=== PATIENT | male | born 1940 | race Caucasian/White ===

== ENCOUNTER 2024-04-12 06:30 | Inpatient (IN) ==
[2024-04-03 12:18] LABS: Basophils # (Auto) 0.08 K/mcL (0.00-0.30); Basophils % (Auto) 0.8 % (0.0-2.0); Eosinophils # (Auto) 0.47 K/mcL (0.00-0.70); Eosinophils % (Auto) 4.4 % (0.0-7.0); Hematocrit 38.4 % (40.1-51.0); Hemoglobin 12.1 g/dL (13.7-17.5); Lymphocytes # (Auto) 2.72 K/mcL (1.50-4.80); Lymphocytes % (Auto) 25.7 % (15.5-49.0); Mean Cell Volume 89.3 fL (80.0-100.0); Mean Corpuscular HGB Conc 31.5 g/dL (31.0-36.0); Mean Platelet Volume 10.1 fL (8.8-12.5); Monocytes # (Auto) 0.69 K/mcL (0.10-0.90); Monocytes % (Auto) 6.5 % (1.0-12.0); Neutrophils % (Auto) 62.4 % (38.0-78.0); Platelet Count 424 K/mcL (140-440); Red Cell Distribution Width 14.1 % (11.5-14.5); WBC 10.6 K/mcL (4.5-11.0)
[2024-04-03 12:23] LABS: INR 0.9 (0.9-1.1); Prothrombin Time 12.9 sec (11.9-14.5)
[2024-04-03 12:36] LABS: ALT/SGPT 31 U/L (<40); AST/SGOT 40 U/L (<40); Albumin 4.3 gm/dL (3.2-5.2); Albumin/Globulin Ratio 1.2 (1.0-2.3); Alkaline Phosphatase 107 U/L (39-117); Bilirubin,Total 0.3 mg/dL (0.1-1.0); Blood Urea Nitrogen 16 mg/dL (8-23); Calcium 9.6 mg/dL (8.6-10.4); Carbon Dioxide 22 mmol/L (22-30); Chloride 98 mmol/L (96-108); Globulin 3.7 gm/dL (2.2-3.7); Glomerular Filtration Rate 39; Glucose 118 mg/dL (70-105); Potassium 4.1 mmol/L (3.3-5.1); Sodium 135 mmol/L (133-145)
[2024-04-03 15:35] LABS: Hemoglobin A1C 7.1 % Hgb (4.0-6.0)
[2024-04-12] MEDS ORDERED: fentaNYL 100 MCG/2 ML VIAL ONE ×2 (07:53→09:39)
[2024-04-12] MEDS ORDERED: KETAMINE 50 MG/ML Syringe IV ONE (07:53)
[2024-04-12] MEDS ORDERED: PROPOFOL 200 MG/20 ML VIAL IV ONE (07:53)
[2024-04-12] MEDS ORDERED: MAGNESIUM SULFATE 2 GM/50 ML BAG IV ONE (07:56)
[2024-04-12] MEDS ORDERED: ROCURONIUM 10 MG/ML ML IV ONE (07:58)
[2024-04-12] MEDS ORDERED: DEXAMETHASONE 10 MG/ML VIAL ONE (07:58)
[2024-04-12] MEDS ORDERED: LIDOCAINE 2% PF 5 ML VIAL ONE (07:58)
[2024-04-12] MEDS ORDERED: ONDANSETRON 4 MG/2 ML VIAL ONE (07:58)
[2024-04-12] MEDS: ceFAZolin 2 GM in DEXTROSE 5% IN WATER 50 ML IV SCH (08:43)
[2024-04-12] MEDS ORDERED: PHENYLephrine 1 MG/10 ML SYRINGE (ANEST) ONE (08:56)
[2024-04-12] MEDS ORDERED: TRANEXAMIC ACID 1,000 MG/10 ML VIAL ONE (09:52)
[2024-04-12] MEDS: THROMBIN (BOVINE) 5,000 UNIT VIAL TOPICAL ONE (09:55)
[2024-04-12] MEDS ORDERED: LACTATED RINGERS 250 ML IV PRN (10:03)
[2024-04-12] MEDS ORDERED: diphenhydrAMINE 50 MG/ML VIAL IV PRN (10:03)
[2024-04-12] MEDS ORDERED: MEPERIDINE 25 MG/ML VIAL IV PRN (10:03)
[2024-04-12] MEDS ORDERED: ONDANSETRON 4 MG/2 ML VIAL IV PRN (10:03)
[2024-04-12] MEDS ORDERED: IPRATROPIUM/ALBUTEROL 3 ML AMPUL.NEB NEB PRN (10:03)
[2024-04-12] MEDS ORDERED: NALOXONE HCL 0.4 MG/ML VIAL IV PRN (10:03)
[2024-04-12] MEDS ORDERED: SUGAMMADEX SODIUM 200 MG/2 ML VIAL IV ONE (10:05)
[2024-04-12] MEDS: ACETAMINOPHEN 1,000 MG/100 ML BAG IV ONE (10:41)
[2024-04-12] MEDS: METHOCARBAMOL 1,000 MG/10 ML VIAL IV PRN (10:49)
[2024-04-12] MEDS: fentaNYL 100 MCG/2 ML VIAL IV PRN (10:49)
[2024-04-12] MEDS: LACTATED RINGERS 1,000 ML IV SCH (12:24)
[2024-04-12] MEDS: DEXTROSE 5%-NS 1,000 ML IV SCH (13:26)
[2024-04-12] MEDS: 0.9 % SODIUM CHLORIDE 10 ML SYRINGE IV SCH (13:27)
[2024-04-12] MEDS: oxyCODONE IR 5 MG TABLET PO PRN (13:31)
[2024-04-12] MEDS: LIDOCAINE 4% TOP PATCH TOPICAL SCH (15:32)
[2024-04-12] MEDS: ACETAMINOPHEN 1,000 MG/100 ML BAG IV SCH (17:31)
[2024-04-13 05:38] LABS: Basophils # (Auto) 0 K/mcL (0.00-0.30); Basophils % (Auto) 0 % (0.0-2.0); Eosinophils # (Auto) 0 K/mcL (0.00-0.70); Eosinophils % (Auto) 0 % (0.0-7.0); Hematocrit 26.9 % (40.1-51.0); Hemoglobin 8.4 g/dL (13.7-17.5); Lymphocytes # (Auto) 1.06 K/mcL (1.50-4.80); Lymphocytes % (Auto) 6.1 % (15.5-49.0); Mean Cell Volume 90.9 fL (80.0-100.0); Mean Corpuscular HGB Conc 31.2 g/dL (31.0-36.0); Mean Platelet Volume 10.1 fL (8.8-12.5); Monocytes # (Auto) 1.06 K/mcL (0.10-0.90); Monocytes % (Auto) 6.1 % (1.0-12.0); Neutrophils % (Auto) 87.6 % (38.0-78.0); Platelet Count 278 K/mcL (140-440); RBC 2.96 M/mcL (4.63-6.08); WBC 17.5 K/mcL (4.5-11.0)
[2024-04-13 07:01] LABS: ALT/SGPT 39 U/L (<40); AST/SGOT 46 U/L (<40); Albumin 3.5 gm/dL (3.2-5.2); Albumin/Globulin Ratio 1.3 (1.0-2.3); Alkaline Phosphatase 78 U/L (39-117); Bilirubin,Direct < 0.2 mg/dL (0-0.3); Bilirubin,Total 0.3 mg/dL (0.1-1.0); Blood Urea Nitrogen 21 mg/dL (8-23); Calcium 8.3 mg/dL (8.6-10.4); Carbon Dioxide 20 mmol/L (22-30); Chloride 104 mmol/L (96-108); Globulin 2.6 gm/dL (2.2-3.7); Glomerular Filtration Rate 46; Glucose 173 mg/dL (70-105); Lactate Dehydrogenase 166 U/L (135-225); Phosphorous 2.2 mg/dL (2.5-4.5); Sodium 135 mmol/L (133-145); Triglycerides 133 mg/dL (<150); Uric Acid 6.7 mg/dL (2.5-8.0)
[2024-04-13] MEDS: SERTRALINE 50 MG TABLET PO SCH (08:14)
[2024-04-13] MEDS: PANTOPRAZOLE 40 MG TABLET PO SCH (08:15)
[2024-04-13] MEDS: CLOPIDOGREL 75 MG TABLET PO SCH (08:15)
[2024-04-13] MEDS ORDERED: LIDOCAINE 4% TOP PATCH TOPICAL SCH (09:00)
[2024-04-13 11:25] LABS: Hematocrit 26.7 % (40.1-51.0); Hemoglobin 8.4 g/dL (13.7-17.5)
[2024-04-13] MEDS: HYDROmorphone 1 MG/ML SYRINGE IV SCH (13:01)
[2024-04-13] MEDS: HYDROmorphone 1 MG/ML SYRINGE IV PRN (13:56)
[2024-04-13] MEDS: 0.9 % SODIUM CHLORIDE 250 ML IV SCH (17:15)
[2024-04-14 06:18] LABS: Basophils # (Auto) 0.05 K/mcL (0.00-0.30); Basophils % (Auto) 0.4 % (0.0-2.0); Eosinophils # (Auto) 0.34 K/mcL (0.00-0.70); Eosinophils % (Auto) 2.9 % (0.0-7.0); Hemoglobin 7.7 g/dL (13.7-17.5); Lymphocytes # (Auto) 2.16 K/mcL (1.50-4.80); Lymphocytes % (Auto) 18.4 % (15.5-49.0); Mean Cell Volume 91.2 fL (80.0-100.0); Mean Corpuscular HGB Conc 30.8 g/dL (31.0-36.0); Mean Platelet Volume 10.3 fL (8.8-12.5); Monocytes # (Auto) 0.87 K/mcL (0.10-0.90); Monocytes % (Auto) 7.4 % (1.0-12.0); Neutrophils % (Auto) 70.6 % (38.0-78.0); Platelet Count 261 K/mcL (140-440); RBC 2.74 M/mcL (4.63-6.08); Red Cell Distribution Width 15.6 % (11.5-14.5); WBC 11.7 K/mcL (4.5-11.0)
[2024-04-14] MEDS: 0.9 % SODIUM CHLORIDE 250 ML IV SCH (19:25)
[2024-04-15 08:16] LABS: Basophils # (Auto) 0.05 K/mcL (0.00-0.30); Basophils % (Auto) 0.5 % (0.0-2.0); Eosinophils # (Auto) 0.44 K/mcL (0.00-0.70); Eosinophils % (Auto) 4.3 % (0.0-7.0); Hematocrit 38.1 % (40.1-51.0); Lymphocytes % (Auto) 16.5 % (15.5-49.0); Mean Cell Volume 93.2 fL (80.0-100.0); Mean Corpuscular HGB Conc 31.5 g/dL (31.0-36.0); Mean Platelet Volume 9.8 fL (8.8-12.5); Monocytes # (Auto) 0.88 K/mcL (0.10-0.90); Monocytes % (Auto) 8.5 % (1.0-12.0); Neutrophils % (Auto) 69.8 % (38.0-78.0); Platelet Count 266 K/mcL (140-440); RBC 4.09 M/mcL (4.63-6.08); Red Cell Distribution Width 14.6 % (11.5-14.5); WBC 10.3 K/mcL (4.5-11.0)
[2024-04-15] MEDS: ACETAMINOPHEN 500 MG TABLET PO SCH (23:37)
[2024-04-15] MEDS: ACETAMINOPHEN 500 MG TABLET PO ONE (23:37)
[2024-04-16 06:07] LABS: Basophils # (Auto) 0.04 K/mcL (0.00-0.30); Basophils % (Auto) 0.3 % (0.0-2.0); Eosinophils # (Auto) 0.31 K/mcL (0.00-0.70); Eosinophils % (Auto) 2.6 % (0.0-7.0); Hematocrit 39.7 % (40.1-51.0); Lymphocytes # (Auto) 1.62 K/mcL (1.50-4.80); Lymphocytes % (Auto) 13.4 % (15.5-49.0); Mean Cell Volume 95.2 fL (80.0-100.0); Mean Corpuscular HGB Conc 30.2 g/dL (31.0-36.0); Mean Platelet Volume 9.8 fL (8.8-12.5); Monocytes # (Auto) 0.85 K/mcL (0.10-0.90); Neutrophils % (Auto) 76.4 % (38.0-78.0); Platelet Count 274 K/mcL (140-440); RBC 4.17 M/mcL (4.63-6.08); Red Cell Distribution Width 14.5 % (11.5-14.5); WBC 12.1 K/mcL (4.5-11.0)
[2024-04-16] MEDS: ACETAMINOPHEN 500 MG TABLET PO ONE (07:52)
[2024-04-16] MEDS ORDERED: PROMETHAZINE 25 MG TABLET PO PRN (14:08)
[2024-04-16] MEDS: METOCLOPRAMIDE 10 MG TABLET PO SCH (19:06)
[2024-04-16] MEDS: METOCLOPRAMIDE 10 MG/2 ML VIAL IV SCH (22:38)
[2024-04-17 06:00] LABS: Basophils # (Auto) 0.06 K/mcL (0.00-0.30); Basophils % (Auto) 0.6 % (0.0-2.0); Eosinophils # (Auto) 0.43 K/mcL (0.00-0.70); Eosinophils % (Auto) 4.5 % (0.0-7.0); Hematocrit 36.2 % (40.1-51.0); Hemoglobin 11.7 g/dL (13.7-17.5); Lymphocytes # (Auto) 1.79 K/mcL (1.50-4.80); Lymphocytes % (Auto) 18.8 % (15.5-49.0); Mean Cell Volume 89.4 fL (80.0-100.0); Mean Corpuscular HGB Conc 32.3 g/dL (31.0-36.0); Monocytes # (Auto) 0.78 K/mcL (0.10-0.90); Monocytes % (Auto) 8.2 % (1.0-12.0); Neutrophils % (Auto) 67.4 % (38.0-78.0); Platelet Count 304 K/mcL (140-440); RBC 4.05 M/mcL (4.63-6.08); Red Cell Distribution Width 14.4 % (11.5-14.5); WBC 9.5 K/mcL (4.5-11.0)
[2024-04-17 06:33] LABS: ALT/SGPT 33 U/L (<40); AST/SGOT 27 U/L (<40); Albumin 3.4 gm/dL (3.2-5.2); Albumin/Globulin Ratio 1.2 (1.0-2.3); Alkaline Phosphatase 114 U/L (39-117); Bilirubin,Direct 0.4 mg/dL (<0.3); Bilirubin,Total 0.6 mg/dL (0.1-1.0); Blood Urea Nitrogen 16 mg/dL (8-23); Calcium 9.1 mg/dL (8.6-10.4); Carbon Dioxide 22 mmol/L (22-30); Chloride 103 mmol/L (96-108); Globulin 2.9 gm/dL (2.2-3.7); Glomerular Filtration Rate 56; Glucose 129 mg/dL (70-105); Lactate Dehydrogenase 178 U/L (135-225); Phosphorous 2.5 mg/dL (2.5-4.5); Potassium 3.8 mmol/L (3.3-5.1); Sodium 137 mmol/L (133-145); Triglycerides 190 mg/dL (<150); Uric Acid 5.2 mg/dL (2.5-8.0)
[2024-04-17] MEDS ORDERED: MAGNESIUM HYDROXIDE 30 ML ORAL.SUSP PO PRN (14:17)
== END 2024-04-18 16:25 | disposition home or self-care (01) | DRG 415 ==
LOC: SUR 06:30 → MEDSUR 06:30
PROVIDERS: ADMIT Family Medicine Adult Medicine; ATTEND Family Medicine Adult Medicine